=== PATIENT | female | born 1980 | race Caucasian/White ===

== ENCOUNTER 2020-10-27 22:48 | Emergency (ER) | payer MEDICARE, OTHER ==
[2020-10-27] MEDS ORDERED: Ketorolac Tromethamine 30 MG/ML VIAL ONE (23:58)
[2020-10-27] MEDS ORDERED: Ondansetron PF 4 MG/2 ML Vial ONE (23:58)
[2020-10-27] MEDS ORDERED: Ondansetron ODT 4 MG TAB ONE (23:59)
[2020-10-28] MEDS ORDERED: Famotidine 20 MG TAB ONE
== END 2020-10-28 00:50 | disposition home or self-care (01) ==
LOC: CSHERS 22:48
DX: I10 Essential (primary) hypertension (principal); R10.9 Unspecified abdominal pain; E11.9 Type 2 diabetes mellitus without complications; E78.5 Hyperlipidemia, unspecified; Z79.899 Other long term (current) drug therapy
CPT/HCPCS: 96372; 99283; J1885; J2405; Q0162